=== PATIENT | male | born 1990 | race Caucasian/White ===

== ENCOUNTER 2020-08-30 17:09 | Emergency (ER) | payer MEDICAID ==
[~2020-08-30] VITALS: Ht 167.6 cm; Wt 140.0 kg
--- NOTE | 2020-08-30 17:21 | NUR ---
SRINATH MORALES NOTIFIED OF TRAUMA LEVEL 2.
--- NOTE | 2020-08-30 17:34 | NUR ---
SRINATH PA IN TO EVAL PT SOON PLACED IN ROOM 9. AND TRAUMA LEVEL 2 CALLED OFF. VISUAL ACUITY DONE. MD NOTIFIED OF RESULTS.
[2020-08-30 17:54] LABS: BASOPHILS # (AUTO) 0.1 X10'3 (0-0.2); BASOPHILS % (AUTO) 0.6 % (0-1); EOSINOPHILS # (AUTO) 0.5 X10'3 (0-0.9); EOSINOPHILS % (AUTO) 4.7 % (0-6); HEMOGLOBIN 16.2 g/dl (14.0-17.9); LYMPHOCYTES # (AUTO) 1.5 X10'3 (1.1-4.8); LYMPHOCYTES % (AUTO) 13.5 % (21-51); MEAN CORPUSCULAR HGB CONC 34.4 g/dL (33.0-36.5); MEAN CORPUSCULAR VOLUME 87.3 FL (78-98); MONOCYTES # (AUTO) 0.8 X10'3 (0-0.9); NEUTROPHILS # (AUTO) 8.1 X10'3 (1.8-7.7); NEUTROPHILS % (AUTO) 74.2 % (42-75); PLATELET COUNT 237 X10'3 (140-440); RED BLOOD COUNT 5.38 X10'6 (4.70-6.10); RED CELL DISTRIBUTION WIDTH 13.2 % (11.5-14.5); WHITE BLOOD COUNT 10.9 X10'3 (4.5-11.0)
[2020-08-30 18:11] LABS: PARTIAL THROMBOPLASTIN TIME 26 SECONDS (22-32)
[2020-08-30 18:12] LABS: ALANINE AMINOTRANSFERASE 68 U/L (12-78); ALBUMIN 4.2 G/DL (3.4-5.0); ALKALINE PHOSPHATASE 64 IU/L (46-116); ANION GAP 11 (8-16); ASPARTATE AMINO TRANSFERASE 34 U/L (10-37); BILIRUBIN,TOTAL 0.3 MG/DL (0.1-1.0); BLOOD UREA NITROGEN 14 MG/DL (7-18); BUN/CREATININE RATIO 12.7 (5.4-32.0); CALCIUM 8.9 MG/DL (8.5-10.1); CHLORIDE 103 MMOL/L (99-107); GLUCOSE 115 MG/DL (70-104); POTASSIUM 3.3 MMOL/L (3.5-5.1); SODIUM 140 MMOL/L (135-145); TOTAL CARBON DIOXIDE 26.4 MMOL/L (24-32); TOTAL PROTEIN 8.5 G/DL (6.4-8.2); eGFR 79 ML/MIN
[2020-08-30 19:06] VITALS: BP 110/92
== END 2020-08-30 19:08 | disposition home or self-care (01) ==
LOC: ER 17:11
DX: R55 Syncope and collapse (principal); H11.31 Conjunctival hemorrhage, right eye; W18.39XA Other fall on same level, initial encounter; Y93.89 Activity, other specified; Y92.89 Other specified places as the place of occurrence of the external cause; Y99.8 Other external cause status
CPT/HCPCS: 36415; 70450; 71045; 80053; 85025; 85610; 85730; 93005; 99285